=== PATIENT | female | born 1955 | race American Indian/Alaskan Native ===

== ENCOUNTER 2017-06-08 15:00 | Emergency (ER) | payer OTHER ==
--- NOTE | 2017-06-08 19:08 | Emergency Department Report ---
Entered by TRICE WHATLEY, acting as scribe for BARBARA POWELL PA. Chief Complaint: Medical Clearance Stated Complaint: DIALYSIS Time Seen by Provider: 06/08/17 18:54 - HPI History of Present Illness: Patient has dialysis every M//. Patient states she was sick last week and did not have dialysis for 1.5 weeks. Patient went to dialysis today and was told they were not able to do dialysis due to the length of time since it was last done. Notes [facility] [place] called EMS to bring her to this ED for evaluation. In the ED, patient c/o dialysis treatment. Notes she tastes the toxins in her body. Reports SOB. Denies chest pain. Denies abdominal pain, N/V/D - ROS Review of Systems: All systems are negative unless stated in the HPI above. - Exam Vital Signs: Vital Signs 06/08/17 18:00 Temperature 98.7 F Pulse Rate 86 Respiratory 20 Rate Blood Pressure 155/94 O2 Sat by Pulse 95 Oximetry Physical Exam: GENERAL: Patient is alert and oriented x 3. No apparent distress, normal gait, atraumatic. LUNGS: Symmetrical with respiration. No wheezing, rales or crackles, CTAB. HEART: Regular rate and rhythm with normal S1/S2 present. No murmurs, rubs, or gallops. EXTREMITIES/MUSCULOSKELETAL: ROM intact, 2+ pulses in UE/LE, no pitting edema. No left elbow deformity/abrasion present. MSE screening note: Focused history and physical exam performed. Due to findings the following was ordered: see below ED Medical Decision Making - EKG Data EKG shows normal: sinus rhythm Rate: normal - EKG Data Interpretation: other (minimal voltage criteria for LVH, may be normal variant, Borderline ECG) - Medical Decision Making Patient screened by provider in triage area. Lab work ordered and sent in for patient. Patient sent to be seen by MD on main ED side. ED Disposition for MSE Condition: Stable This documentation as recorded by the scribe,TRICE WHATLEY,accurately reflects the service I personally performed and the decisions made by SHERRY holland OYINLOLA A, PA.
[2017-06-08 20:00] LABS: Albumin 3.7 g/dL (3.9-5); Albumin/Globulin Ratio 0.9 %; BUN/Creatinine Ratio 8.73; Bilirubin,Total 0.2 mg/dL (0.1-1.2); Calcium 8.7 mg/dL (8.4-10.2); Chloride 100.4 mmol/L (98-107); Potassium 4.3 mmol/L (3.6-5.0); Total Protein 7.8 g/dL (6.3-8.2)
[2017-06-08 20:02] LABS: Hematocrit 38.9 % (30.3-42.9); Hemoglobin 12.3 gm/dl (10.1-14.3); Mean Corpuscular HGB Conc 32 % (30-34); Mean Corpuscular Volume 75 fl (79-97); Platelet Count 220 K/mm3 (140-440); Red Blood Count 5.18 M/mm3 (3.65-5.03); White Blood Count 3.4 K/mm3 (4.5-11.0)
[2017-06-08 20:13] LABS: Mean Corpuscular Hemoglobin 24 pg (28-32)
[2017-06-08 20:51] LABS: Basophils % (Manual) 0 % (0.0-1.8); Blastocytes % (Manual) 0 %; Eosinophils % (Manual) 0 % (0.0-4.3)
[2017-06-08 20:52] LABS: Anisocytosis 1+; Diff Status Complete; Elliptocytes Few; Poikilocytosis Few; Target Cells Few
--- NOTE | 2017-06-08 23:43 | Emergency Department Report ---
ED Medical Clearance HPI - General Chief complaint: Medical Clearance Stated complaint: DIALYSIS Time Seen by Provider: 06/08/17 22:42 Source: patient Mode of arrival: Ambulatory - History of Present Illness Initial comments: 62-year-old female with a past medical history end-stage kidney disease on hemodialysis, DVT, and PE presents to the hospital complains of needing dialysis. Patient typically receives dialysis Thursday, Thursday, and Thursday. Patient did not go to dialysis in 10 days because she was sick last week. Patient states she has generalized body aches, vomiting, cough at the time which are improving. Dialysis Center refused to perform dialysis and she had not been there in 10 days and instructed her to come to the ER for treatment and evaluation. Patient denies shortness of breath or chest pain, or edema. Allergies/Adverse reactions: Allergies Allergy/AdvReac Type Severity Reaction Status Date / Time amoxicillin Allergy Hives Verified 06/08/17 18:09 [id number] Reductase Allergy Unknown Verified 06/08/17 18:09 Inhibitor ED Review of Systems ROS: Stated complaint: DIALYSIS Other details as noted in HPI Comment: All other systems reviewed and negative Other: Constitutional: No fevers chills or weight loss Eyes: No eye pain visual changes or discharge ENT: No ear pain or throat pain Neck: Denies pain Respiratory: Denies cough wheezing shortness of breath Cardiovascular: Denies chest pain, palpitations, syncope GI: Denies abdominal pain, nausea, vomiting, diarrhea : Patient still makes urine Musculoskeletal: Denies back pain Skin: Denies rash, lesions, erythema Neurologic: Denies headache, numbness, weakness Psychiatric: Denies suicidal ideation, hallucinations ED Past Medical Hx - Past Medical History Hx Hypertension: Yes Hx Deep Vein Thrombosis: Yes (Lungs and right leg) Hx Renal Disease: Yes - Surgical History Past Surgical History?: No - Social History Smoking Status: Never Smoker Substance Use Type: None ED Physical Exam - General Limitations: No Limitations - Other Other exam information: General: No limitations, patient is alert in no acute distress Head exam: Atraumatic, normocephalic Eyes exam: Normal appearance, pupils equal reactive to light, extraocular movements intact ENT: Moist mucous membrane, normal oropharynx Neck exam: Normal inspection, full range of motion Respiratory exam: Clear to auscultation bilateral, no wheezes, rales, crackles Cardiovascular: Normal rate and rhythm, normal heart sounds Abdomen: Soft, nondistended, and nontender, with normal bowel sounds, no rebound, or guarding Extremity: Full range of motion normal inspection no deformity. Left upper arm AV graft positive thrill, no edema Back: Normal Inspection, full range of motion, no tenderness Neurologic: Alert, oriented x3, cranial nerves intact, no motor or sensory deficit Psychiatric: normal affect, normal mood Skin: Warm, dry, intact ED Course Vital Signs 06/08/17 18:00 Temperature 98.7 F Pulse Rate 86 Respiratory 20 Rate Blood Pressure 155/94 O2 Sat by Pulse 95 Oximetry - Reevaluation(s) Reevaluation #1: 06/08/17 23:44 Patient stable - Consultations Consultation #1: 06/08/17 23:[address] De La Rosa. He agrees the patient does not meet criteria for admission to the hospital. Since she has not been to dialysis in quite some time labs were required prior to performing dialysis. Recommend given patient a copy of the labs and instructed her to go to dialysis tomorrow (call prior for a time). ED Medical Decision Making - Lab Data Result diagrams: 06/08/17 19:28 06/08/17 19:28 Lab Results 06/08/17 06/08/17 Range/Units 19:28 19:28 WBC 3.4 L (4.5-11.0) K/mm3 RBC 5.18 H (3.65-5.03) M/mm3 Hgb 12.3 (10.1-14.3) gm/dl Hct 38.9 (30.3-42.9) % MCV 75 L (79-97) fl MCH 24 L (28-32) pg MCHC 32 (30-34) % RDW 17.0 H (13.2-15.2) % Plt Count 220 (140-440) K/mm3 Add Manual Diff Complete Total Counted 100 Seg Neuts % (Manual) 56.0 (40.0-70.0) % Band Neutrophils % 0 % Lymphocytes % (Manual) 38.0 H (13.4-35.0) % Reactive Lymphs % (Man) 0 % Monocytes % (Manual) 6.0 (0.0-7.3) % Eosinophils % (Manual) 0 (0.0-4.3) % Basophils % (Manual) 0 (0.0-1.8) % Metamyelocytes % 0 % Myelocytes % 0 % Promyelocytes % 0 % Blast Cells % 0 % Nucleated RBC % Not Reportable Seg Neutrophils # Man 1.9 (1.8-7.7) K/mm3 Band Neutrophils # 0.0 K/mm3 Lymphocytes # (Manual) 1.3 (1.2-5.4) K/mm3 Abs React Lymphs (Man) 0.0 K/mm3 Monocytes # (Manual) 0.2 (0.0-0.8) K/mm3 Eosinophils # (Manual) 0.0 (0.0-0.4) K/mm3 Basophils # (Manual) 0.0 (0.0-0.1) K/mm3 Metamyelocytes # 0.0 K/mm3 Myelocytes # 0.0 K/mm3 Promyelocytes # 0.0 K/mm3 Blast Cells # 0.0 K/mm3 WBC Morphology Not Reportable Hypersegmented Neuts Not Reportable Hyposegmented Neuts Not Reportable Hypogranular Neuts Not Reportable Smudge Cells Not Reportable Toxic Granulation Not Reportable Toxic Vacuolation Not Reportable Dohle Bodies Not Reportable Pelger-Huet Anomaly Not Reportable Raad Rods Not Reportable Platelet Estimate Appears normal Clumped Platelets Not Reportable Plt Clumps, EDTA Not Reportable Large Platelets Not Reportable Giant Platelets Not Reportable Platelet Satelliting Not Reportable Plt Morphology Comment Not Reportable RBC Morphology Not Reportable Dimorphic RBCs Not Reportable Polychromasia Not Reportable Hypochromasia Not Reportable Poikilocytosis Few Anisocytosis 1+ Microcytosis Not Reportable Macrocytosis Not Reportable Spherocytes Not Reportable Pappenheimer Bodies Not Reportable Sickle Cells Not Reportable Target Cells Few Tear Drop Cells Not Reportable Ovalocytes Not Reportable Helmet Cells Not Reportable [place] Bodies Not Reportable [place] Rings Not Reportable Adeline Cells Not Reportable Bite Cells Not Reportable Crenated Cell Not Reportable Elliptocytes Few Acanthocytes (Spur) Not Reportable Rouleaux Not Reportable Hemoglobin C Crystals Not Reportable Schistocytes Not Reportable Malaria parasites Not Reportable Minesh Bodies Not Reportable Hem Pathologist Commnt No Sodium 137 (137-145) mmol/L Potassium 4.3 (3.6-5.0) mmol/L Chloride 100.4 (98-107) mmol/L Carbon Dioxide 18 L (22-30) mmol/L Anion Gap 23 mmol/L BUN 55 H (7-17) mg/dL Creatinine 6.3 H (0.7-1.2) mg/dL Estimated GFR 7 ml/min BUN/Creatinine Ratio 8.73 % Glucose 99 (65-100) mg/dL Calcium 8.7 (8.4-10.2) mg/dL Total Bilirubin 0.20 (0.1-1.2) mg/dL AST 30 (5-40) units/L ALT 22 (7-56) units/L Alkaline Phosphatase 68 (35-129) units/L Total Protein 7.8 (6.3-8.2) g/dL Albumin 3.7 L (3.9-5) g/dL Albumin/Globulin Ratio 0.9 % - EKG Data -: EKG Interpreted by Me (sinus rhythm [address] elevation, no peaked T waves ) - Radiology Data Radiology results: image reviewed (chest x-ray: No acute findings) - Medical Decision Making Although patient has missed several dialysis she does not meet criteria for admission at this time. There are no signs of Hyperkalemia, alteration in mental status, volume overload, or pulmonary edema. Patient stable for outpatient dialysis. Provide a copy of labs for follow-up. Counseled on the importance of not missing her dialysis. - Differential Diagnosis noncompliance, bilateral below, hyperkalemia ED Disposition Clinical Impression: ESRD on dialysis, Dialysis patient, noncompliant Disposition: DC-01 TO HOME OR SELFCARE Is pt being admited?: No Does the pt Need Aspirin: No Condition: Stable Additional Instructions: Take a copy of the labs and go to your dialysis tomorrow. Call prior for a specific time. Referrals: ZACHARY GOODMAN MD [Staff Physician] - 3-5 Days Time of Disposition: 23:44
[2017-06-09 00:32] VITALS: BP 134/78
--- NOTE | 2017-06-09 08:02 | XRay Report ---
ROUTINE CHEST, TWO VIEWS: HISTORY: Shortness of breath. The trachea, heart, mediastinal contour, lung gooden and bony thorax are unremarkable. IMPRESSION: Unremarkable chest x-ray.
== END 2017-06-09 | disposition home or self-care (01) ==
LOC: ED 15:00
DX: I12.0 Hypertensive chronic kidney disease with stage 5 chronic kidney disease or end stage renal disease (principal); N18.6 End stage renal disease; Z99.2 Dependence on renal dialysis; Z91.15 Patient's noncompliance with renal dialysis; Z86.718 Personal history of other venous thrombosis and embolism; Z88.1 Allergy status to other antibiotic agents; Z88.8 Allergy status to other drugs, medicaments and biological substances
CPT/HCPCS: 36415; 71020; 80053; 85007; 85025; 99284

== ENCOUNTER 2019-09-16 10:38 | Emergency (ER) | payer MEDICARE, OTHER ==
[2019-09-16 12:58] LABS: Hematocrit 25.2 % (30.3-42.9); Hemoglobin 7.9 gm/dl (10.1-14.3); Mean Corpuscular HGB Conc 32 % (30-34); Mean Corpuscular Volume 85 fl (79-97); Platelet Count 168 K/mm3 (140-440); Red Blood Count 2.96 M/mm3 (3.65-5.03); Red Cell Distribution Width 19.8 % (13.2-15.2)
--- NOTE | 2019-09-16 13:13 | Emergency Department Report ---
ED General Adult HPI - General Chief complaint: Medical Clearance Stated complaint: NEEDS DIALYSIS Time Seen by Provider: 09/16/19 11:22 Source: patient Mode of arrival: Ambulatory Limitations: No Limitations - History of Present Illness Initial comments: The patient presents to the emergency department for medical clearance for hemodialysis. Patient states she is scheduled for dialysis today at 3 PM was told to come to the emergency department for laboratory evaluation. Patient denies any chest pain, shortness breath, or abdominal pain. -: unknown Severity scale (0 -10): 0 Consistency: constant Improves with: none Worsens with: none Associated Symptoms: denies other symptoms Treatments Prior to Arrival: none - Related Data Allergies Allergy/AdvReac Type Severity Reaction Status Date / Time amoxicillin Allergy Hives Verified 09/16/19 10:58 Llvdabn-Ldc-Myw Reductase Allergy Unknown Verified 09/16/19 10:58 Inhibitor ED Review of Systems ROS: Stated complaint: NEEDS DIALYSIS Other details as noted in HPI Comment: All other systems reviewed and negative Constitutional: denies: chills, fever Eyes: denies: eye pain, eye discharge, vision change ENT: denies: ear pain, throat pain Respiratory: denies: cough, shortness of breath, wheezing Cardiovascular: denies: chest pain, palpitations Endocrine: no symptoms reported Gastrointestinal: denies: abdominal pain, nausea, diarrhea Genitourinary: denies: urgency, dysuria, discharge Musculoskeletal: denies: back pain, joint swelling, arthralgia Skin: denies: rash, lesions Neurological: denies: headache, weakness, paresthesias Psychiatric: denies: anxiety, depression Hematological/Lymphatic: denies: easy bleeding, easy bruising ED Past Medical Hx - Past Medical History Hx Hypertension: Yes Hx Deep Vein Thrombosis: Yes (Lungs and right leg) Hx Renal Disease: Yes - Social History Smoking Status: Never Smoker Substance Use Type: None ED Physical Exam - General Limitations: No Limitations General appearance: alert, in no apparent distress - Head Head exam: Present: atraumatic, normocephalic - Eye Eye exam: Present: normal appearance, PERRL, EOMI - ENT ENT exam: Present: mucous membranes moist - Neck Neck exam: Present: normal inspection - Respiratory Respiratory exam: Present: normal lung sounds bilaterally. Absent: respiratory distress - Cardiovascular Cardiovascular Exam: Present: regular rate, normal rhythm. Absent: systolic murmur, diastolic murmur, rubs, gallop - GI/Abdominal GI/Abdominal exam: Present: soft, normal bowel sounds. Absent: distended, tenderness - Extremities Exam Extremities exam: Present: normal inspection - Back Exam Back exam: Present: normal inspection - Neurological Exam Neurological exam: Present: alert, oriented X3, CN II-XII intact. Absent: motor sensory deficit - Psychiatric Psychiatric exam: Present: normal affect, normal mood - Skin Skin exam: Present: warm, dry, intact, normal color. Absent: rash ED Course Vital Signs 09/16/19 09/16/19 10:54 10:56 Temperature 98.1 F 98.1 F Pulse Rate 76 75 Respiratory 16 16 Rate Blood Pressure 157/91 157/91 O2 Sat by Pulse 100 100 Oximetry ED Medical Decision Making - Lab Data Result diagrams: 09/16/19 12:25 09/16/19 12:25 Lab Results 09/16/19 09/16/19 Range/Units 12:25 12:25 WBC 4.0 L (4.5-11.0) K/mm3 RBC 2.96 L (3.65-5.03) M/mm3 Hgb 7.9 L (10.1-14.3) gm/dl Hct 25.2 L (30.3-42.9) % MCV 85 (79-97) fl MCH 27 L (28-32) pg MCHC 32 (30-34) % RDW 19.8 H (13.2-15.2) % Plt Count 168 (140-440) K/mm3 Sodium 145 (137-145) mmol/L Potassium 4.1 (3.6-5.0) mmol/L Chloride 108.8 H (98-107) mmol/L Carbon Dioxide 21 L (22-30) mmol/L Anion Gap 19 mmol/L BUN 41 H (7-17) mg/dL Creatinine 9.8 H (0.7-1.2) mg/dL Estimated GFR 5 ml/min BUN/Creatinine Ratio 4 % Glucose 97 (65-100) mg/dL Calcium 7.3 L (8.4-10.2) mg/dL Total Bilirubin 0.40 (0.1-1.2) mg/dL AST 17 (5-40) units/L ALT < 5 L (7-56) units/L Alkaline Phosphatase 62 (35-129) units/L Total Protein 5.5 L (6.3-8.2) g/dL Albumin 2.4 L (3.9-5) g/dL Albumin/Globulin Ratio 0.8 % - Medical Decision Making Results discussed with patient Critical care attestation.: If time is entered above; I have spent that time in minutes in the direct care of this critically ill patient, excluding procedure time. ED Disposition Clinical Impression: ESRD (end stage renal disease) Disposition: TO HOME OR SELFCARE Is pt being admited?: No Does the pt Need Aspirin: No Condition: Stable Instructions: Chronic Kidney Disease (ED), End-Stage Kidney Disease (ED) Additional Instructions: Your potassium today is 4.1 Referrals: PRIMARY CAREMD [Primary Care Provider] - 3-5 Days LISA BOWMAN MD [Staff Physician] - 3-5 Days Time of Disposition: 14:12
[2019-09-16 13:17] LABS: Albumin 2.4 g/dL (3.9-5); BUN/Creatinine Ratio 4; Blood Urea Nitrogen 41 mg/dL (7-17); Calcium 7.3 mg/dL (8.4-10.2); Hemolysis Index 3
[2019-09-16 13:22] LABS: Alanine Aminotransferase < 5 units/L (7-56)
[2019-09-16 14:27] LABS: Anisocytosis 1+; Eosinophils % (Manual) 0 % (0.0-4.3); Total Cells Counted 100
[2019-09-16 14:28] LABS: Schistocytes 1+
[2019-09-16 14:29] LABS: Poikilocytosis 1+; Target Cells Few
[2019-09-16 14:30] LABS: Ovalocytes Few
[2019-09-16 14:33] LABS: Platelet Estimate Consistent w Auto
[2019-09-16 14:34] VITALS: BP 150/88
== END 2019-09-16 14:36 | disposition home or self-care (01) ==
LOC: ED 10:38
DX: I12.0 Hypertensive chronic kidney disease with stage 5 chronic kidney disease or end stage renal disease (principal); N18.6 End stage renal disease; Z99.2 Dependence on renal dialysis; Z88.1 Allergy status to other antibiotic agents; Z91.09 Other allergy status, other than to drugs and biological substances; Z86.718 Personal history of other venous thrombosis and embolism
CPT/HCPCS: 36415; 80053; 85007; 85025

== ENCOUNTER 2020-10-21 11:34 | Observation (INO) | payer MEDICARE ==
--- NOTE | 2020-10-21 12:22 | Emergency Department Report ---
ED General Adult HPI - General Chief complaint: Fever Stated complaint: FEVER/BODYACHES/DIALYSIS NEEDED PUI?: Yes Time Seen by Provider: 10/21/20 11:54 Source: patient, EMS ( EMS documentation not available at time of chart dictation ), RN notes reviewed Mode of arrival: Wheelchair Limitations: Physical Limitation - History of Present Illness Initial comments: The patient was evaluated in the emergency department for symptoms described in the history of present illness. He/she was evaluated in the context of the global COVID-19 pandemic, which necessitated consideration that the patient might be at risk for infection with the virus that causes COVID-19. Institutional protocols and algorithms that pertain to the evaluation of patients at risk for COVID-19 are in a state of rapid change based on information released by regulatory bodies including the CDC and federal and state organizations. These policies and algorithms were followed during the patient's care in the emergency department. Please note that these policies, procedures and recommendations changed on a rapid basis. During the entire history and physical examination, I had on complete personal protective equipment. The patient is a 65-year-old female. She believes her monogram technician is Dr. Orellana. She was sent to the emergency room from her outpatient dialysis facility for fevers and chills. Patient has been having fever and chills for 1 day. Patient denies loss of taste, loss of smell, cough. No nausea, vomiting or diarrhea. No urinary symptoms. No exposure to Covid positive individuals. Has right paralumbar back pain, nontraumatic, for the past 3 days, and right- sided abdominal pain. She has a left upper extremity graft which failed. She has a left-sided thoracic Vas-Cath, which was placed at [facility] a few months ago. She is not having any pain or discharge over the Vas-Cath that she is aware of. -: Gradual, days(s) (1) Severity scale (0 -10): 9 Consistency: intermittent Improves with: none Worsens with: none - Related Data Home Medications Medication Instructions Recorded Confirmed Last Taken No Known Home Medications [No 10/21/20 10/21/20 Unknown Reported Home Medications] Allergies Allergy/AdvReac Type Severity Reaction Status Date / Time amoxicillin Allergy Hives Verified 09/16/19 10:58 [id number] Reductase Allergy Unknown Verified 09/16/19 10:58 Inhibitor ED Review of Systems ROS: Stated complaint: FEVER/BODYACHES/DIALYSIS NEEDED Other details as noted in HPI Constitutional: chills, fever, malaise, weakness Eyes: denies: eye discharge ENT: denies: epistaxis, congestion Respiratory: denies: cough Cardiovascular: denies: chest pain Gastrointestinal: abdominal pain Genitourinary: denies: dysuria Musculoskeletal: back pain, myalgia. denies: arthralgia Skin: denies: lesions Neurological: weakness Hematological/Lymphatic: denies: easy bleeding ED Past Medical Hx - Past Medical History Previous Medical History?: Yes Hx Hypertension: Yes Hx CVA: No Hx Heart Attack/AMI: No Hx Congestive Heart Failure: No Hx Diabetes: No Hx Deep Vein Thrombosis: Yes (Lungs and right leg) Hx GERD: No Hx Renal Disease: Yes Hx of Cancer: No Hx Sickle Cell Disease: No Hx Arthritis: No Hx Headaches / Migraines: No Hx Seizures: No Hx Asthma: No Hx COPD: No Hx Tuberculosis: No Hx Dementia: No - Social History Smoking Status: Never Smoker Substance Use Type: None - Medications Home Medications: Home Medications Medication Instructions Recorded Confirmed Last Taken Type No Known Home Medications [No 10/21/20 10/21/20 Unknown History Reported Home Medications] ED Physical Exam - General Limitations: Physical Limitation General appearance: alert, in no apparent distress - Head Head exam: Present: atraumatic, normocephalic - Eye Eye exam: Present: normal appearance, EOMI. Absent: nystagmus - ENT ENT exam: Present: normal exam, normal orophraynx, mucous membranes moist, normal external ear exam - Neck Neck exam: Present: normal inspection, full ROM. Absent: tenderness, meningismus - Respiratory Respiratory exam: Present: normal lung sounds bilaterally. Absent: respiratory distress, wheezes, rales, rhonchi, stridor, decreased breath sounds - Cardiovascular Cardiovascular Exam: Present: regular rate, normal rhythm, normal heart sounds. Absent: bradycardia, tachycardia, irregular rhythm, systolic murmur, diastolic m urmur, rubs, gallop - GI/Abdominal GI/Abdominal exam: Present: soft, tenderness (There is right flank/right upper quadrant tenderness.). Absent: distended, guarding, rebound, rigid, pulsatile mass - Extremities Exam Extremities exam: Present: normal inspection, full ROM, other (2+ pulses noted in the bilateral upper and lower extremities. There is no palpable cord. negative Homans sign. Muscular compartments are soft. The pelvis is stable.). Absent: calf tenderness - Back Exam Back exam: Present: normal inspection, CVA tenderness (R). Absent: tenderness, paraspinal tenderness, vertebral tenderness - Neurological Exam Neurological exam: Present: alert, other (No facial droop. Tongue midline. Extraocular movements intact bilaterally. Facial sensation intact to light touch in V1, V2, V3 distribution bilaterally. 5 and a 5 strength in 4 extremities. Sensation intact to light touch in 4 extremities.) - Psychiatric Psychiatric exam: Present: normal affect, normal mood - Skin Skin exam: Present: warm, dry, intact, normal color, other (Left-sided thoracic Vas-Cath noted, with green pus noted coming from skin. The catheter itself is nontender). Absent: rash ED Course Vital Signs 10/21/20 10/21/20 10/21/20 11:53 11:54 11:59 Temperature 101.8 F H 101.8 F H Pulse Rate 92 H 94 H 92 H Respiratory 18 19 18 Rate Blood Pressure 134/81 Blood Pressure 134/81 [Right] O2 Sat by Pulse 100 100 100 Oximetry 10/21/20 10/21/20 10/21/20 12:00 12:02 12:09 Temperature 101.8 F H Pulse Rate 96 H 94 H Respiratory 15 22 15 Rate Blood Pressure 130/74 Blood Pressure 130/74 [Right] O2 Sat by Pulse 100 100 100 Oximetry 10/21/20 10/21/20 10/21/20 12:15 12:30 12:38 Temperature Pulse Rate 92 H 94 H 92 H Respiratory 23 17 Rate Blood Pressure 130/74 130/79 Blood Pressure [Right] O2 Sat by Pulse 100 100 Oximetry 10/21/20 10/21/20 10/21/20 12:45 13:00 13:15 Temperature Pulse Rate 95 H 94 H 95 H Respiratory 22 20 16 Rate Blood Pressure 130/79 131/74 131/74 Blood Pressure [Right] O2 Sat by Pulse 100 100 99 Oximetry 10/21/20 10/21/20 10/21/20 13:30 13:45 14:00 Temperature 103.2 F H Pulse Rate 95 H 104 H 96 H Respiratory 21 26 H 16 Rate Blood Pressure 135/77 135/77 126/76 Blood Pressure 126/76 [Right] O2 Sat by Pulse 100 100 100 Oximetry 10/21/20 10/21/20 10/21/20 14:15 14:30 14:45 Temperature Pulse Rate 100 H 96 H 95 H Respiratory 22 22 21 Rate Blood Pressure 126/76 126/70 126/70 Blood Pressure [Right] O2 Sat by Pulse 100 100 100 Oximetry 10/21/20 10/21/20 10/21/20 15:00 15:15 15:44 Temperature Pulse Rate 92 H 93 H 99 H Respiratory 19 14 14 Rate Blood Pressure 128/77 128/77 128/77 Blood Pressure [Right] O2 Sat by Pulse 100 99 100 Oximetry 10/21/20 10/21/20 15:46 16:00 Temperature Pulse Rate 94 H 93 H Respiratory 16 17 Rate Blood Pressure 128/77 129/70 Blood Pressure 120/79 [Right] O2 Sat by Pulse 100 100 Oximetry ED Medical Decision Making - Lab Data Result diagrams: 10/21/20 13:10 10/21/20 13:10 Vital Signs 10/21/20 10/21/20 10/21/20 11:53 11:54 11:59 Temperature 101.8 F H 101.8 F H Pulse Rate 92 H 94 H 92 H Respiratory 18 19 18 Rate Blood Pressure 134/81 Blood Pressure 134/81 [Right] O2 Sat by Pulse 100 100 100 Oximetry 10/21/20 10/21/20 10/21/20 12:00 12:02 12:09 Temperature 101.8 F H Pulse Rate 96 H 94 H Respiratory 15 22 15 Rate Blood Pressure 130/74 Blood Pressure 130/74 [Right] O2 Sat by Pulse 100 100 100 Oximetry 10/21/20 10/21/20 10/21/20 12:15 12:30 12:38 Temperature Pulse Rate 92 H 94 H 92 H Respiratory 23 17 Rate Blood Pressure 130/74 130/79 Blood Pressure [Right] O2 Sat by Pulse 100 100 Oximetry 10/21/20 10/21/20 10/21/20 12:45 13:00 13:15 Temperature Pulse Rate 95 H 94 H 95 H Respiratory 22 20 16 Rate Blood Pressure 130/79 131/74 131/74 Blood Pressure [Right] O2 Sat by Pulse 100 100 99 Oximetry 10/21/20 10/21/20 10/21/20 13:30 13:45 14:00 Temperature 103.2 F H Pulse Rate 95 H 104 H 96 H Respiratory 21 26 H 16 Rate Blood Pressure 135/77 135/77 126/76 Blood Pressure 126/76 [Right] O2 Sat by Pulse 100 100 100 Oximetry Lab Results 10/21/20 10/21/20 10/21/20 Range/Units 13:10 13:10 13:10 WBC 8.9 (4.5-11.0) K/mm3 RBC 4.33 (3.65-5.03) M/mm3 Hgb 11.1 (10.1-14.3) gm/dl Hct 35.5 (30.3-42.9) % MCV 82 (79-97) fl MCH 26 L (28-32) pg MCHC 31 (30-34) % RDW 17.6 H (13.2-15.2) % Plt Count 57 L (140-440) K/mm3 Add Manual Diff Complete Total Counted 100 Seg Neuts % (Manual) 86.0 H (40.0-70.0) % Band Neutrophils % 6.0 % Lymphocytes % (Manual) 2.0 L (13.4-35.0) % Reactive Lymphs % (Man) 0 % Monocytes % (Manual) 2.0 (0.0-7.3) % Eosinophils % (Manual) 0 (0.0-4.3) % Basophils % (Manual) 0 (0.0-1.8) % Metamyelocytes % 4.0 % Myelocytes % 0 % Promyelocytes % 0 % Blast Cells % 0 % Nucleated RBC % Not Reportable Seg Neutrophils # Man 7.7 (1.8-7.7) K/mm3 Band Neutrophils # 0.5 K/mm3 Lymphocytes # (Manual) 0.2 L (1.2-5.4) K/mm3 Abs React Lymphs (Man) 0.0 K/mm3 Monocytes # (Manual) 0.2 (0.0-0.8) K/mm3 Eosinophils # (Manual) 0.0 (0.0-0.4) K/mm3 Basophils # (Manual) 0.0 (0.0-0.1) K/mm3 Metamyelocytes # 0.4 K/mm3 Myelocytes # 0.0 K/mm3 Promyelocytes # 0.0 K/mm3 Blast Cells # 0.0 K/mm3 WBC Morphology Not Reportable Hypersegmented Neuts Not Reportable Hyposegmented Neuts Not Reportable Hypogranular Neuts Not Reportable Smudge Cells Not Reportable Toxic Granulation Not Reportable Toxic Vacuolation Not Reportable Dohle Bodies Not Reportable Pelger-Huet Anomaly Not Reportable Raad Rods Not Reportable Platelet Estimate Consistent w auto Clumped Platelets Not Reportable Plt Clumps, EDTA Not Reportable Large Platelets Not Reportable Giant Platelets Not Reportable Platelet Satelliting Not Reportable Plt Morphology Comment Not Reportable RBC Morphology Not Reportable Dimorphic RBCs Not Reportable Polychromasia Not Reportable Hypochromasia Few Poikilocytosis Not Reportable Anisocytosis Not Reportable Microcytosis Not Reportable Macrocytosis Not Reportable Spherocytes Not Reportable Pappenheimer Bodies Not Reportable Sickle Cells Not Reportable Target Cells Not Reportable Tear Drop Cells Few Ovalocytes Not Reportable Helmet Cells Not Reportable Andrews-Copeland Bodies Not Reportable Colbert Rings Not Reportable Adeline Cells Not Reportable Bite Cells Not Reportable Crenated Cell Not Reportable Elliptocytes 2+ Acanthocytes (Spur) Not Reportable Rouleaux Not Reportable Hemoglobin C Crystals Not Reportable Schistocytes 1+ Malaria parasites Not Reportable Minesh Bodies Not Reportable Hem Pathologist Commnt No APTT 33.2 (24.2-36.6) Sec. D-Dimer 6998.29 H (0-234) ng/mlDDU Sodium 138 (137-145) mmol/L Potassium 4.6 (3.6-5.0) mmol/L Chloride 100.4 (98-107) mmol/L Carbon Dioxide 21 L (22-30) mmol/L Anion Gap 21 mmol/L BUN 56 H (7-17) mg/dL Creatinine 8.1 H (0.6-1.2) mg/dL Estimated GFR 6 ml/min BUN/Creatinine Ratio 7 % Glucose 95 (65-100) mg/dL Lactic Acid (0.7-2.0) mmol/L Calcium 8.2 L (8.4-10.2) mg/dL Magnesium (1.7-2.3) mg/dL Ferritin (10.0-200.0) ng/mL Total Bilirubin 0.50 (0.1-1.2) mg/dL AST 28 (5-40) units/L ALT 14 (7-56) units/L Alkaline Phosphatase 79 (35-129) units/L Lactate Dehydrogenase 302 H (91-180) units/L Total Creatine Kinase (30-135) units/L Troponin T 0.074 H (0.00-0.029) ng/mL C-Reactive Protein 20.60 H (0.00-1.30) mg/dL Total Protein 5.9 L (6.3-8.2) g/dL Albumin 2.5 L (3.9-5) g/dL Albumin/Globulin Ratio 0.7 % Triglycerides 184 H (2-149) mg/dL Cholesterol 216 H (50-199) mg/dL LDL Cholesterol Direct 119 (50-130) mg/dL HDL Cholesterol 60 H (40-59) mg/dL Cholesterol/HDL Ratio 3.60 % Lipase (13-60) units/L Procalcitonin (<0.15) ng/mL 10/21/20 10/21/20 10/21/20 Range/Units 13:10 13:10 13:10 WBC (4.5-11.0) K/mm3 RBC (3.65-5.03) M/mm3 Hgb (10.1-14.3) gm/dl Hct (30.3-42.9) % MCV (79-97) fl MCH (28-32) pg MCHC (30-34) % RDW (13.2-15.2) % Plt Count (140-440) K/mm3 Add Manual Diff Total Counted Seg Neuts % (Manual) (40.0-70.0) % Band Neutrophils % % Lymphocytes % (Manual) (13.4-35.0) % Reactive Lymphs % (Man) % Monocytes % (Manual) (0.0-7.3) % Eosinophils % (Manual) (0.0-4.3) % Basophils % (Manual) (0.0-1.8) % Metamyelocytes % % Myelocytes % % Promyelocytes % % Blast Cells % % Nucleated RBC % Seg Neutrophils # Man (1.8-7.7) K/mm3 Band Neutrophils # K/mm3 Lymphocytes # (Manual) (1.2-5.4) K/mm3 Abs React Lymphs (Man) K/mm3 Monocytes # (Manual) (0.0-0.8) K/mm3 Eosinophils # (Manual) (0.0-0.4) K/mm3 Basophils # (Manual) (0.0-0.1) K/mm3 Metamyelocytes # K/mm3 Myelocytes # K/mm3 Promyelocytes # K/mm3 Blast Cells # K/mm3 WBC Morphology Hypersegmented Neuts Hyposegmented Neuts Hypogranular Neuts Smudge Cells Toxic Granulation Toxic Vacuolation Dohle Bodies Pelger-Huet Anomaly Raad Rods Platelet Estimate Clumped Platelets Plt Clumps, EDTA Large Platelets Giant Platelets Platelet Satelliting Plt Morphology Comment RBC Morphology Dimorphic RBCs Polychromasia Hypochromasia Poikilocytosis Anisocytosis Microcytosis Macrocytosis Spherocytes Pappenheimer Bodies Sickle Cells Target Cells Tear Drop Cells Ovalocytes Helmet Cells Andrews-Copeland Bodies Colbert Rings [place] Cells Bite Cells Crenated Cell Elliptocytes Acanthocytes (Spur) Rouleaux Hemoglobin C Crystals Schistocytes Malaria parasites Minesh Bodies Hem Pathologist Commnt APTT (24.2-36.6) Sec. D-Dimer (0-234) ng/mlDDU Sodium (137-145) mmol/L Potassium (3.6-5.0) mmol/L Chloride (98-107) mmol/L Carbon Dioxide (22-30) mmol/L Anion Gap mmol/L BUN (7-17) mg/dL Creatinine (0.6-1.2) mg/dL Estimated GFR ml/min BUN/Creatinine Ratio % Glucose (65-100) mg/dL Lactic Acid 1.50 (0.7-2.0) mmol/L Calcium (8.4-10.2) mg/dL Magnesium (1.7-2.3) mg/dL Ferritin 1040.0 H (10.0-200.0) ng/mL Total Bilirubin (0.1-1.2) mg/dL AST (5-40) units/L ALT (7-56) units/L Alkaline Phosphatase (35-129) units/L Lactate Dehydrogenase (91-180) units/L Total Creatine Kinase (30-135) units/L Troponin T (0.00-0.029) ng/mL C-Reactive Protein (0.00-1.30) mg/dL Total Protein (6.3-8.2) g/dL Albumin (3.9-5) g/dL Albumin/Globulin Ratio % Triglycerides (2-149) mg/dL Cholesterol (50-199) mg/dL LDL Cholesterol Direct (50-130) mg/dL HDL Cholesterol (40-59) mg/dL Cholesterol/HDL Ratio % Lipase (13-60) units/L Procalcitonin 131.18 (<0.15) ng/mL 10/21/20 10/21/20 10/21/20 Range/Units 13:10 13:10 14:59 WBC (4.5-11.0) K/mm3 RBC (3.65-5.03) M/mm3 Hgb (10.1-14.3) gm/dl Hct (30.3-42.9) % MCV (79-97) fl MCH (28-32) pg MCHC (30-34) % RDW (13.2-15.2) % Plt Count (140-440) K/mm3 Add Manual Diff Total Counted Seg Neuts % (Manual) (40.0-70.0) % Band Neutrophils % % Lymphocytes % (Manual) (13.4-35.0) % Reactive Lymphs % (Man) % Monocytes % (Manual) (0.0-7.3) % Eosinophils % (Manual) (0.0-4.3) % Basophils % (Manual) (0.0-1.8) % Metamyelocytes % % Myelocytes % % Promyelocytes % % Blast Cells % % Nucleated RBC % Seg Neutrophils # Man (1.8-7.7) K/mm3 Band Neutrophils # K/mm3 Lymphocytes # (Manual) (1.2-5.4) K/mm3 Abs React Lymphs (Man) K/mm3 Monocytes # (Manual) (0.0-0.8) K/mm3 Eosinophils # (Manual) (0.0-0.4) K/mm3 Basophils # (Manual) (0.0-0.1) K/mm3 Metamyelocytes # K/mm3 Myelocytes # K/mm3 Promyelocytes # K/mm3 Blast Cells # K/mm3 WBC Morphology Hypersegmented Neuts Hyposegmented Neuts Hypogranular Neuts Smudge Cells Toxic Granulation Toxic Vacuolation Dohle Bodies Pelger-Huet Anomaly Raad Rods Platelet Estimate Clumped Platelets Plt Clumps, EDTA Large Platelets Giant Platelets Platelet Satelliting Plt Morphology Comment RBC Morphology Dimorphic RBCs Polychromasia Hypochromasia Poikilocytosis Anisocytosis Microcytosis Macrocytosis Spherocytes Pappenheimer Bodies Sickle Cells Target Cells Tear Drop Cells Ovalocytes Helmet Cells Andrews-Copeland Bodies Colbert Rings Adeline Cells Bite Cells Crenated Cell Elliptocytes Acanthocytes (Spur) Rouleaux Hemoglobin C Crystals Schistocytes Malaria parasites Minesh Bodies Hem Pathologist Commnt APTT (24.2-36.6) Sec. D-Dimer (0-234) ng/mlDDU Sodium (137-145) mmol/L Potassium (3.6-5.0) mmol/L Chloride (98-107) mmol/L Carbon Dioxide (22-30) mmol/L Anion Gap mmol/L BUN (7-17) mg/dL Creatinine (0.6-1.2) mg/dL Estimated GFR ml/min BUN/Creatinine Ratio % Glucose (65-100) mg/dL Lactic Acid 1.40 (0.7-2.0) mmol/L Calcium (8.4-10.2) mg/dL Magnesium 1.90 (1.7-2.3) mg/dL Ferritin (10.0-200.0) ng/mL Total Bilirubin (0.1-1.2) mg/dL AST (5-40) units/L ALT (7-56) units/L Alkaline Phosphatase (35-129) units/L Lactate Dehydrogenase (91-180) units/L Total Creatine Kinase 22 L (30-135) units/L Troponin T (0.00-0.029) ng/mL C-Reactive Protein (0.00-1.30) mg/dL Total Protein (6.3-8.2) g/dL Albumin (3.9-5) g/dL Albumin/Globulin Ratio % Triglycerides (2-149) mg/dL Cholesterol (50-199) mg/dL LDL Cholesterol Direct (50-130) mg/dL HDL Cholesterol (40-59) mg/dL Cholesterol/HDL Ratio % Lipase 32 (13-60) units/L Procalcitonin (<0.15) ng/mL - EKG Data -: EKG Interpreted by Nh EKG shows normal: sinus rhythm Rate: normal - EKG Data 10/21/20 16:15 Sinus rhythm, 63 bpm, normal axis, QTC prolonged, borderline left ventricular hypertrophy. Motion artifact. This EKG is abnormal. The EKG is not a STEMI. When compared to prior EKG from May 2017, appears to be grossly unchanged. - Radiology Data Radiology results: report reviewed, image reviewed ULTRASOUND ABDOMEN, LIMITED (RIGHT UPPER QUADRANT) INDICATION: ruq pain. COMPARISON: None available. FINDINGS: Pancreas: Visualized portion shows no significant abnormality. Liver: No significant abnormality. Gallbladder: Surgically absent. Sonographic Montes De Oca's sign: Not performed. Bile ducts: No significant abnormality. Common Bile Duct measures 5.1 mm. Free fluid: None. Additional Findings: The right kidney is atrophic. IMPRESSION: 1. No acute sonographic abnormality of the right upper quadrant. Signer Name: Radames Toro MD Signed: 10/21/2020 2:13 PM Workstation Name: [id number] CHEST 1 VIEW 10/21/2020 12:37 PM INDICATION / CLINICAL INFORMATION: sepsis. COMPARISON: None available. FINDINGS: SUPPORT DEVICES: Left internal jugular dialysis catheter has tip in right atrium HEART / MEDIASTINUM: No significant abnormality. LUNGS / PLEURA: No significant pulmonary or pleural abnormality. No pneumothorax. ADDITIONAL FINDINGS: No significant additional findings. IMPRESSION: 1. No acute findings. Signer Name: Alfred Hansen MD Signed: 10/21/2020 11:50 AM Workstation Name: [id number] ULTRASOUND ABDOMEN, LIMITED (RIGHT UPPER QUADRANT) INDICATION: ruq pain. COMPARISON: None available. FINDINGS: Pancreas: Visualized portion shows no significant abnormality. Liver: No significant abnormality. Gallbladder: Surgically absent. Sonographic Montes De Oca's sign: Not performed. Bile ducts: No significant abnormality. Common Bile Duct measures 5.1 mm. Free fluid: None. Additional Findings: The right kidney is atrophic. IMPRESSION: 1. No acute sonographic abnormality of the right upper quadrant. Signer Name: Radames Toro MD Signed: 10/21/2020 2:13 PM Workstation Name: [id number] CT ABDOMEN AND PELVIS WITHOUT CONTRAST INDICATION / CLINICAL INFORMATION: Back pain and right upper quadrant pain for 2 days. TECHNIQUE: Axial CT images were obtained through the abdomen and pelvis without IV contrast. All CT scans at this location are performed using CT dose reduction for ALARA by means of automated exposure control. COMPARISON: Limited abdominal ultrasound performed earlier today. FINDINGS: LOWER CHEST: A partially visualized central venous catheter terminates within the right atrium. No significant abnormality. LIVER: No significant abnormality. GALLBLADDER: Surgically absent. BILE DUCTS: No significant abnormality. PANCREAS: No significant abnormality. SPLEEN: No significant abnormality. ADRENALS: There is bilateral adrenal enlargement without visualization of a suspicious nodule/mass. RIGHT KIDNEY / URETER: Moderate atrophy of the right kidney. No acute abnormality. LEFT KIDNEY / URETER: Moderate atrophy of the left kidney. No acute abnormality. STOMACH / SMALL BOWEL: No significant abnormality. COLON: Generalized colonic diverticulosis without evidence of diverticulitis. No other significant abnormality. APPENDIX: No significant abnormality. PERITONEUM: No free fluid. No free air. No fluid collection. LYMPH NODES: No significant adenopathy. AORTA / ARTERIES: No acute abnormality. Mild generalized atherosclerosis. IVC / VEINS: No significant abnormality. URINARY BLADDER: No significant abnormality. REPRODUCTIVE ORGANS: Prior hysterectomy. No significant adnexal abnormality. ADDITIONAL FINDINGS: A peritoneal dialysis catheter terminates to the left of midline posteriorly and inferiorly along the pelvis. SKELETAL SYSTEM: No acute abnormality. There is severe lumbar spondylosis with mild lumbar levoscoliosis. IMPRESSION: 1. No acute abnormality. 2. Additional findings as above. Signer Name: Radames Toro MD Signed: 10/21/2020 3:03 PM Workstation Name: [id number] - Medical Decision Making Differential diagnosis, including but not limited to: Bacteremia, viremia, pneumonia, urinary tract infection, postcholecystectomy syndrome, COVID-19, infected vascular access catheter, intra-abdominal infection Assessment and plan: 65-year-old female, meeting systemic inflammatory response syndrome criteria, manifested by fever, heart rate greater than 90. Patient also found to have 6% bandemia on WBC differential. CT scan abdomen pelvis, right upper quadrant ultrasound negative for acute findings, specifically, not suggestive of postcholecystectomy syndrome/retained stone. Patient not hypoxic, chest x-ray clear, COVID-19 is unlikely. However, we will maintain patient on isolation precautions, and sent laboratory studies to risk stratify patient for cytokine storm. Based off of the history, physical, and available data, do not have high suspicion or concern for pulmonary embolism at this time. Etiology for Sirs/sepsis is likely infected Vas-Cath. Peripheral blood cultures ordered, and blood cultures have been ordered to be drawn through Vas-Cath. Nursing team has been instructed to contact hemodialysis nurse to obtain cultures from Vas-Cath. Contacted nephrology on-call, Dr. De La Rosa, and vascular surgery on-call, Dr. Chaudhry. Discussed history, physical, pertinent laboratory studies and imaging findings. They agree to follow in consultation. Discussed recommendation for admission and antibiotic therapy with patient, who verbalized understanding, and who is amenable to this plan of care. Patient will be medicated with vancomycin and cefepime. Patient describes nonspecific hives when exposed to amoxicillin, without evidence or articulation of anaphylactic symptoms. Patient has not been exposed to amoxicillin for decades. As a fourth generation cephalosporin, cefepime quite structurally dissimilar to penicillin/amoxicillin, and is very statistically unlikely to cause anaphylactic/anaphylactoid reaction. Hospital physician, Dr. Hellen Chester to admit Patient not demonstrating evidence of lactic acidosis, hemodynamic instability, or septic shock, and also, given history of renal failure/end-stage renal disease, not having had hemodialysis today, does not meet criteria for bolus of 30 cc/kg IV fluids. We will give gentle hydration at this time. Critical Care Time: Yes Critical care time in (mins) excluding proc time.: 35 Critical care attestation.: If time is entered above; I have spent that time in minutes in the direct care of this critically ill patient, excluding procedure time. ED Disposition Clinical Impression: SIRS (systemic inflammatory response syndrome), ESRD (end stage renal disease), Back pain, Right sided abdominal pain, Vascular catheter infection Disposition: 09 OP ADMIT IP TO THIS HOSP Is pt being admited?: Yes Does the pt Need Aspirin: No Condition: Serious Referrals: PRIMARY CARE, [Primary Care Provider] - 3-5 Days
--- NOTE | 2020-10-21 12:54 | XRay Report ---
CHEST 1 VIEW 10/21/2020 12:37 PM INDICATION / CLINICAL INFORMATION: sepsis. COMPARISON: None available. FINDINGS: SUPPORT DEVICES: Left internal jugular dialysis catheter has tip in right atrium HEART / MEDIASTINUM: No significant abnormality. LUNGS / PLEURA: No significant pulmonary or pleural abnormality. No pneumothorax. ADDITIONAL FINDINGS: No significant additional findings. IMPRESSION: 1. No acute findings. Signer Name: Alfred Hansen MD Signed: 10/21/2020 12:50 PM Workstation Name: [id number]
[2020-10-21 13:30] LABS: Hematocrit 35.5 % (30.3-42.9); Hemoglobin 11.1 gm/dl (10.1-14.3); Mean Corpuscular HGB Conc 31 % (30-34); Mean Corpuscular Volume 82 fl (79-97); Red Blood Count 4.33 M/mm3 (3.65-5.03); Red Cell Distribution Width 17.6 % (13.2-15.2)
[2020-10-21 13:32] LABS: Platelet Count 57 K/mm3 (140-440)
[2020-10-21 13:34] LABS: Partial Thromboplastin Time 33.2 Sec. (24.2-36.6)
[2020-10-21] MEDS ORDERED: fentaNYL 100 MCG/2 ML INJ IV ONE (13:58)
[2020-10-21] MEDS ORDERED: VANCOMYCIN 750 MG in SODIUM CHLORIDE 0.9% 500 ML 500 ML IV ONE (13:58)
[2020-10-21 13:59] LABS: Albumin 2.5 g/dL (3.9-5); C-Reactive Protein 20.6 mg/dL (0.00-1.30); Calcium 8.2 mg/dL (8.4-10.2)
[2020-10-21 14:12] LABS: Chol/HDL Ratio 3.6 %
[2020-10-21] MEDS: ACETAMINOPHEN 500 MG TAB PO ONE ×2 (14:14→14:24)
[2020-10-21 14:21] LABS: Band Neutrophils # (Manual) 0.5 K/mm3; Basophils % (Manual) 0 % (0.0-1.8); Eosinophils % (Manual) 0 % (0.0-4.3); Total Cells Counted 100
[2020-10-21 14:22] LABS: Tear Drop Cells Few
[2020-10-21 14:23] LABS: Schistocytes 1+
[2020-10-21 14:24] LABS: Hypochromasia Few; Platelet Estimate Consistent w Auto
[2020-10-21] MEDS ORDERED: VANCOMYCIN/NS 1 GM/250 ML 1 GM/250 ML BAG IV ONE (15:00)
[2020-10-21] MEDS ORDERED: CEFEPIME/NS 1 GM/100 ML 1 GM/100 ML BAG IV SCH (15:00)
--- NOTE | 2020-10-21 15:18 | Ultrasound Report ---
ULTRASOUND ABDOMEN, LIMITED (RIGHT UPPER QUADRANT) INDICATION: ruq pain. COMPARISON: None available. FINDINGS: Pancreas: Visualized portion shows no significant abnormality. Liver: No significant abnormality. Gallbladder: Surgically absent. Sonographic Montes De Oca's sign: Not performed. Bile ducts: No significant abnormality. Common Bile Duct measures 5.1 mm. Free fluid: None. Additional Findings: The right kidney is atrophic. IMPRESSION: 1. No acute sonographic abnormality of the right upper quadrant. Signer Name: Radames Toro MD Signed: 10/21/2020 3:13 PM Workstation Name: [id number]
--- NOTE | 2020-10-21 16:08 | Cat Scan Report ---
CT ABDOMEN AND PELVIS WITHOUT CONTRAST INDICATION / CLINICAL INFORMATION: Back pain and right upper quadrant pain for 2 days. TECHNIQUE: Axial CT images were obtained through the abdomen and pelvis without IV contrast. All CT scans at [facility] location are performed using CT dose reduction for ALARA by means of automated exposure control. COMPARISON: Limited abdominal ultrasound performed earlier today. FINDINGS: LOWER CHEST: A partially visualized central venous catheter terminates within the right atrium. No si gnificant abnormality. LIVER: No significant abnormality. GALLBLADDER: Surgically absent. BILE DUCTS: No significant abnormality. PANCREAS: No significant abnormality. SPLEEN: No significant abnormality. ADRENALS: There is bilateral adrenal enlargement without visualization of a suspicious nodule/mass. RIGHT KIDNEY / URETER: Moderate atrophy of the right kidney. No acute abnormality. LEFT KIDNEY / URETER: Moderate atrophy of the left kidney. No acute abnormality. STOMACH / SMALL BOWEL: No significant abnormality. COLON: Generalized colonic diverticulosis without evidence of diverticulitis. No other significant ab normality. APPENDIX: No significant abnormality. PERITONEUM: No free fluid. No free air. No fluid collection. LYMPH NODES: No significant adenopathy. AORTA / ARTERIES: No acute abnormality. Mild generalized atherosclerosis. IVC / VEINS: No significant abnormality. URINARY BLADDER: No significant abnormality. REPRODUCTIVE ORGANS: Prior hysterectomy. No significant adnexal abnormality. ADDITIONAL FINDINGS: A peritoneal dialysis catheter terminates to the left of midline posteriorly and inferiorly along the pelvis. SKELETAL SYSTEM: No acute abnormality. There is severe lumbar spondylosis with mild lumbar levoscolio sis. IMPRESSION: 1. No acute abnormality. 2. Additional findings as above. Signer Name: Radames Toro MD Signed: 10/21/2020 4:03 PM Workstation Name: [id number]
[2020-10-21] MEDS ORDERED: SODIUM CHLORIDE 0.9% 250ML 250 ML IV ONE (16:20)
[2020-10-21] MEDS ORDERED: CEFEPIME/NS 1 GM/100 ML 1 GM/100 ML BAG IV ONE (17:00)
--- NOTE | 2020-10-21 17:20 | Operative Report ---
Operative Report Operative Report: Exam: Removal of left chest wall tunneled hemodialysis catheter Clinical indication: Patient with purulent drainage from the catheter track and bacteremia and sepsis Date: 10/21/2020 Procedure: Following an explanation of the risks, benefits and alternatives; informed consent was obtained. The procedure was performed at bedside in the ER. Initial evaluation of the patient's left indwelling tunneled hemodialysis catheter demonstrated purulence expressed from the tract. No erythema or pain along the tract. The sutures were cut and the indwelling catheter removed intact. Hemostasis was then achieved using manual compression. A sterile dressing was applied. The patient tolerated the procedure well. There were no immediate postprocedure complications. Impression: Removal of left chest wall tunneled hemodialysis catheter
[2020-10-21 17:56] VITALS: BP 174/84
== END 2020-10-21 18:50 | disposition left against medical advice (07) ==
LOC: ED 11:34 → 3A 16:40
PROVIDERS: ADMIT Internal Medicine; ATTEND Internal Medicine
DX: T82.7XXA Infection and inflammatory reaction due to other cardiac and vascular devices, implants and grafts, initial encounter (principal); R65.10 Systemic inflammatory response syndrome (SIRS) of non-infectious origin without acute organ dysfunction; I12.0 Hypertensive chronic kidney disease with stage 5 chronic kidney disease or end stage renal disease; N18.6 End stage renal disease; M54.9 Dorsalgia, unspecified; R10.9 Unspecified abdominal pain; Z86.718 Personal history of other venous thrombosis and embolism; Z99.2 Dependence on renal dialysis
CPT/HCPCS: 36415; 36589; 71045; 74176; 76705; 80053; 80061; 82140; 82550; 82728; 83615; 83690; 83735; 84145; 84484; 85025; 85379; 85730; 86140; 87040; 93005; 96365; 96366; 96368; 96375; 99291; G0378; J0692; J3010; J3370; 85007

== ENCOUNTER 2020-10-23 13:02 | Emergency (ER) | payer MEDICARE, OTHER ==
--- NOTE | 2020-10-23 14:14 | Event Note ---
ED Screening Note Date of service: 10/23/20 Time: 14:13 ED Screening Note: Complains of right-sided back pain x3 days and decreased appetite and difficulty sleeping States last dialysis was 10/19/ initial assessment/diagnostic orders/clinical plan/treatment(s) is/are subject to change based on patients health status, clinical progression and re- assessment by fellow clinical providers in the ED. Further treatment and workup at subsequent clinical providers discretion. Patient/guardian urged not to elope from the ED as their condition may be serious if not clinically assessed and managed. Initial orders include: Labs
[2020-10-23 16:04] LABS: Albumin 2.9 g/dL (3.9-5); Calcium 8.8 mg/dL (8.4-10.2)
[2020-10-23 16:11] LABS: Hematocrit 35.2 % (30.3-42.9); Hemoglobin 11.4 gm/dl (10.1-14.3); Mean Corpuscular HGB Conc 32 % (30-34); Mean Corpuscular Volume 80 fl (79-97); Red Blood Count 4.41 M/mm3 (3.65-5.03); Red Cell Distribution Width 17.8 % (13.2-15.2)
[2020-10-23 16:15] LABS: Platelet Count 46 K/mm3 (140-440)
[2020-10-23 16:48] LABS: Basophils % (Manual) 0 % (0.0-1.8); Eosinophils % (Manual) 0 % (0.0-4.3); Hypochromasia Few; Schistocytes 1+; Total Cells Counted 100
[2020-10-23 16:49] LABS: Platelet Clumps Few; Poikilocytosis Few; Tear Drop Cells Few
--- NOTE | 2020-10-24 00:06 | Emergency Department Report ---
ED Back Pain/Injury HPI - General Chief Complaint: Back Pain/Injury Stated Complaint: BACK PAIN Time Seen by Provider: 10/23/20 23:32 Source: patient Limitations: No Limitations - History of Present Illness Initial Comments: 65-year-old female with history of end-stage renal disease, spinal stenosis, sciatica, presents to ED with right-sided back pain. Patient states she walks with a walker and had a fall 3 weeks ago. Patient states she did not immediately have pain at that time. She reports onset of right-sided back pain 3 days ago. Patient states it is similar to her usual chronic back pain, but it is worse. Patient states she took Tylenol at home without relief. Patient presented to ED 3 days ago with fever and also reported this same back pain. She was found to have an infected dialysis catheter. The dialysis catheter was removed. Patient left AMA because she did not want to stay and be admitted. Patient is afebrile today, but states she is still having the same back pain. Patient had an abdominal ultrasound, chest x-ray, and CT abdomen/pelvis on which showed no acute findings. Patient states she only makes very minimal urine. MD Complaint: back pain -: days(s) (3) Similar Symptoms Previously: Yes Radiation: none Severity: moderate - Related Data Previous Rx's Medication Instructions Recorded Last Taken Type methOCARBAMOL [Robaxin TAB] 500 mg PO Q8HR PRN #15 tablet 10/24/20 Unknown Rx traMADoL [Ultram] 50 mg PO Q6HR PRN #7 tablet 10/24/20 Unknown Rx Allergies Allergy/AdvReac Type Severity Reaction Status Date / Time amoxicillin Allergy Hives Verified 09/16/19 10:58 Bpfiylb-Cje-Gnl Reductase Allergy Unknown Verified 09/16/19 10:58 Inhibitor ED Review of Systems ROS: Stated complaint: BACK PAIN Other details as noted in HPI ED Past Medical Hx - Past Medical History Previous Medical History?: Yes Hx Hypertension: Yes Hx CVA: No Hx Heart Attack/AMI: No Hx Congestive Heart Failure: No Hx Diabetes: No Hx Deep Vein Thrombosis: Yes (Lungs and right leg) Hx Pulmonary Embolism: Yes Hx GERD: No Hx Renal Disease: Yes (dialysis M, W, F) Hx Sickle Cell Disease: No Hx Arthritis: No Hx Headaches / Migraines: No Hx Seizures: No Hx Asthma: No Hx COPD: No Hx Tuberculosis: No Hx Dementia: No Additional medical history: spinal stenosis - Surgical History Past Surgical History?: Yes Hx Cholecystectomy: Yes Additional Surgical History: tonsilectomy. hysterectomy - Social History Smoking Status: Never Smoker Substance Use Type: None - Medications Home Medications: Home Medications Medication Instructions Recorded Confirmed Last Taken Type methOCARBAMOL [Robaxin TAB] 500 mg PO Q8HR PRN #15 tablet 10/24/20 Unknown Rx traMADoL [Ultram] 50 mg PO Q6HR PRN #7 tablet 10/24/20 Unknown Rx ED Physical Exam - General Limitations: No Limitations ED Course Vital Signs 10/23/20 10/23/20 10/23/20 13:10 23:26 23:30 Temperature 97.6 F Pulse Rate 67 Respiratory 18 Rate Blood Pressure 122/71 122/71 Blood Pressure 117/87 [Right] O2 Sat by Pulse 100 100 Oximetry 10/24/20 10/24/20 10/24/20 00:00 00:30 00:35 Temperature Pulse Rate 70 Respiratory Rate Blood Pressure 119/73 112/72 Blood Pressure [Right] O2 Sat by Pulse 100 100 Oximetry ED Medical Decision Making - Lab Data Result diagrams: 10/23/20 15:28 10/23/20 15:28 - Medical Decision Making 65-year-old female with right lower back pain. Patient reports pain is similar to her previous back pain. She reports a history of sciatica, spinal stenosis. She denies any urinary incontinence or weakness. Patient was seen 3 days ago for same. Had unremarkable chest x-ray, abdominal ultrasound, and CT abdomen pelvis. Patient reports he only makes minimal urine, as she is a dialysis patient. Likely not pyelonephritis. Patient reports no relief at home with Tylenol. Patient given IM morphine and Toradol here in ED. Prescriptions given. Will discharge at this time. Outpatient follow-up advised. - Differential Diagnosis Acute on chronic back pain, kidney stone, pneumonia Critical care attestation.: If time is entered above; I have spent that time in minutes in the direct care of this critically ill patient, excluding procedure time. ED Disposition Clinical Impression: Acute exacerbation of chronic low back pain Disposition: - TO HOME OR SELFCARE Is pt being admited?: No Condition: Stable Instructions: Acute Back Pain, Adult Prescriptions: methOCARBAMOL [Robaxin TAB] 500 mg PO Q8HR PRN #15 tablet PRN Reason: Muscle Spasm traMADoL [Ultram] 50 mg PO Q6HR PRN #7 tablet PRN Reason: Pain Referrals: PRIMARY CARE, [Primary Care Provider] - 3-5 Days PHILLIP HAMILTON MD [Staff Physician] - DRE DOWLING MD [Staff Physician] - ABIGAIL BUCIO MD [Staff Physician] - as needed Time of Disposition: 00:46
[2020-10-24] MEDS ORDERED: MORPHINE 2 MG/1 ML INJ IM ONE (00:08)
[2020-10-24] MEDS ORDERED: KETOROLAC 30 MG/1 ML INJ IM ONE (00:09)
[2020-10-24 00:35] VITALS: BP 112/72
== END 2020-10-24 01:15 | disposition home or self-care (01) ==
LOC: ED 13:02
DX: M54.5 Low back pain (principal); G89.29 Other chronic pain; I12.0 Hypertensive chronic kidney disease with stage 5 chronic kidney disease or end stage renal disease; N18.6 End stage renal disease; Z99.2 Dependence on renal dialysis; Z86.718 Personal history of other venous thrombosis and embolism; Z79.01 Long term (current) use of anticoagulants; Z86.711 Personal history of pulmonary embolism; Z90.710 Acquired absence of both cervix and uterus; Z88.1 Allergy status to other antibiotic agents; Z98.890 Other specified postprocedural states; Z90.89 Acquired absence of other organs
CPT/HCPCS: 36415; 80053; 85007; 85025; 96372; 99283; J1885; J2270

== ENCOUNTER 2021-02-28 10:02 | Emergency (ER) | payer MEDICARE ==
--- NOTE | 2021-02-28 10:43 | Consultation ---
History of Present Illness - Reason for Consult Consult date: 02/28/21 Malfunctioning dialysis catheter - History of Present Illness Patient with a history of end-stage renal disease on hemodialysis through a left chest wall tunneled hemodialysis catheter. Patient's normal schedule is Thursday. Her last normal dialysis was on Thursday. When she presented to dialysis this morning, her catheter would not function. She was subsequently sent to the ER. Past History Past Medical History: dialysis, ESRD Medications and Allergies Allergies Allergy/AdvReac Type Severity Reaction Status Date / Time amoxicillin Allergy Hives Verified 09/16/19 10:58 Yptkkuf-Ubm-Lui Reductase Allergy Unknown Verified 09/16/19 10:58 Inhibitor Home Medications Medication Instructions Recorded Confirmed Last Taken Type methOCARBAMOL [Robaxin TAB] 500 mg PO Q8HR PRN #15 tablet 10/24/20 12/01/20 Unknown Rx Metoprolol [Lopressor TAB] 25 mg PO Q12H #60 tablet 11/21/20 12/01/20 Unknown Rx Docusate Sodium [Colace] 100 mg PO BID PRN #30 capsule 12/10/20 Unknown Rx Ferrous Sulfate [Feosol 325 MG tab] 325 mg PO QDAY #30 tablet 12/10/20 Unknown Rx Multivitamin Tab [Multiple Vitamin 1 each PO QDAY #30 tablet 12/10/20 Unknown Rx TAB (Theragran)] oxyCODONE ER [oxyCONTIN ER] 10 mg PO Q12HR #14 tablet 12/10/20 Unknown Rx Review of Systems All systems: negative Exam - Constitutional General appearance: Present: no acute distress - EENT Eyes: Present: EOM intact ENT: hearing intact - Neck Neck: Present: supple, normal ROM - Respiratory Respiratory effort: normal - Abdominal General gastrointestinal: Present: deferred - Rectal Rectal Exam: deferred - Psychiatric Psychiatric: cooperative Assessment and Plan Patient will be scheduled for tunneled hemodialysis catheter exchange. After this, with nephrology's okay, the patient may be discharged to follow-up in her outpatient dialysis center.
[2021-02-28 11:36] LABS: Hematocrit 23.2 % (30.3-42.9); Hemoglobin 7.5 gm/dl (10.1-14.3); Mean Corpuscular HGB Conc 33 % (30-34); Mean Corpuscular Volume 85 fl (79-97); Platelet Count 157 K/mm3 (140-440); Red Blood Count 2.72 M/mm3 (3.65-5.03); Red Cell Distribution Width 18.7 % (13.2-15.2)
[2021-02-28 11:53] LABS: INR 0.99 (0.87-1.13)
[2021-02-28 11:54] LABS: Partial Thromboplastin Time 36.9 Sec. (24.2-36.6)
[2021-02-28 11:57] LABS: Calcium 8.6 mg/dL (8.4-10.2)
--- NOTE | 2021-02-28 12:08 | Emergency Department Report ---
ED General Adult HPI - General Chief complaint: Medical Clearance Stated complaint: CATHETER OUT Time Seen by Provider: 02/28/21 10:22 Source: patient, EMS Mode of arrival: Stretcher Limitations: No Limitations - History of Present Illness Initial comments: Patient is a 66-year-old F [place] female with a past medical history of end- stage renal disease who is presenting with dysfunctional dialysis catheter. Patient states her last normal dialysis was 2 days ago. States she went today and the dialysis catheter would not work. She did not receive her dialysis. She is not complaining of any chest pain shortness of breath fevers chills cough cold or congestion. - Related Data Previous Rx's Medication Instructions Recorded Last Taken Type methOCARBAMOL [Robaxin TAB] 500 mg PO Q8HR PRN #15 tablet 10/24/20 Unknown Rx Metoprolol [Lopressor TAB] 25 mg PO Q12H #60 tablet 11/21/20 Unknown Rx Docusate Sodium [Colace] 100 mg PO BID PRN #30 capsule 12/10/20 Unknown Rx Ferrous Sulfate [Feosol 325 MG tab] 325 mg PO QDAY #30 tablet 12/10/20 Unknown Rx Multivitamin Tab [Multiple Vitamin 1 each PO QDAY #30 tablet 12/10/20 Unknown Rx TAB (Theragran)] oxyCODONE ER [oxyCONTIN ER] 10 mg PO Q12HR #14 tablet 12/10/20 Unknown Rx Allergies Allergy/AdvReac Type Severity Reaction Status Date / Time amoxicillin Allergy Hives Verified 09/16/19 10:58 Qgwxzxf-Day-Deq Reductase Allergy Unknown Verified 09/16/19 10:58 Inhibitor ED Review of Systems ROS: Stated complaint: CATHETER OUT Other details as noted in HPI Comment: All other systems reviewed and negative ED Past Medical Hx - Past Medical History Hx Hypertension: Yes Hx CVA: No Hx Heart Attack/AMI: No Hx Congestive Heart Failure: No Hx Diabetes: No Hx Deep Vein Thrombosis: Yes (Lungs and right leg) Hx Pulmonary Embolism: Yes Hx GERD: No Hx Liver Disease: No Hx Renal Disease: Yes (dialysis M, W, F) Hx Sickle Cell Disease: No Hx Arthritis: No Hx Headaches / Migraines: No Hx Seizures: No Hx Asthma: No Hx COPD: No Hx Tuberculosis: No Hx Dementia: No Hx HIV: No Additional medical history: spinal stenosis - Surgical History Hx Pacemaker: No Hx Internal Defibrillator: No Hx Cholecystectomy: Yes Additional Surgical History: tonsilectomy. hysterectomy - Social History Smoking Status: Never Smoker - Medications Home Medications: Home Medications Medication Instructions Recorded Confirmed Last Taken Type methOCARBAMOL [Robaxin TAB] 500 mg PO Q8HR PRN #15 tablet 10/24/20 12/01/20 Unknown Rx Metoprolol [Lopressor TAB] 25 mg PO Q12H #60 tablet 11/21/20 12/01/20 Unknown Rx Docusate Sodium [Colace] 100 mg PO BID PRN #30 capsule 12/10/20 Unknown Rx Ferrous Sulfate [Feosol 325 MG tab] 325 mg PO QDAY #30 tablet 12/10/20 Unknown Rx Multivitamin Tab [Multiple Vitamin 1 each PO QDAY #30 tablet 12/10/20 Unknown Rx TAB (Theragran)] oxyCODONE ER [oxyCONTIN ER] 10 mg PO Q12HR #14 tablet 12/10/20 Unknown Rx ED Physical Exam - General Limitations: No Limitations General appearance: alert, in no apparent distress - Head Head exam: Present: atraumatic, normocephalic - Eye Eye exam: Present: normal appearance, PERRL, EOMI - ENT ENT exam: Present: mucous membranes moist - Neck Neck exam: Present: normal inspection - Respiratory Respiratory exam: Present: normal lung sounds bilaterally. Absent: respiratory distress, wheezes, rales, rhonchi - Cardiovascular Cardiovascular Exam: Present: regular rate, normal rhythm. Absent: systolic murmur, diastolic murmur, rubs, gallop - GI/Abdominal GI/Abdominal exam: Present: soft, normal bowel sounds. Absent: distended, tenderness, guarding, rebound - Extremities Exam Extremities exam: Present: normal inspection - Back Exam Back exam: Present: normal inspection - Neurological Exam Neurological exam: Present: alert, oriented X3 - Psychiatric Psychiatric exam: Present: normal affect, normal mood - Skin Skin exam: Present: warm, dry, intact, normal color. Absent: rash ED Course Vital Signs 02/28/21 02/28/21 02/28/21 10:36 10:41 11:16 Temperature 98.9 F Pulse Rate 73 68 Respiratory 13 15 16 Rate Blood Pressure 139/79 Blood Pressure 133/87 [Right] O2 Sat by Pulse 100 100 Oximetry ED Medical Decision Making - Lab Data Result diagrams: 02/28/21 10:52 02/28/21 10:52 Lab Results 02/28/21 02/28/21 02/28/21 Range/Units 10:52 10:52 10:52 WBC 4.0 L (4.5-11.0) K/mm3 RBC 2.72 L (3.65-5.03) M/mm3 Hgb 7.5 L (10.1-14.3) gm/dl Hct 23.2 L (30.3-42.9) % MCV 85 (79-97) fl MCH 28 (28-32) pg MCHC 33 (30-34) % RDW 18.7 H (13.2-15.2) % Plt Count 157 (140-440) K/mm3 Otero % (Auto) Geothermal Electrical Engineer Baso % (Auto) Geothermal Electrical Engineer PT 13.0 (12.2-14.9) Sec. INR 0.99 (0.87-1.13) APTT 36.9 H (24.2-36.6) Sec. Sodium 138 (137-145) mmol/L Potassium 3.4 L (3.6-5.0) mmol/L Chloride 102.5 (98-107) mmol/L Carbon Dioxide 22 (22-30) mmol/L Anion Gap 17 mmol/L BUN 43 H (7-17) mg/dL Creatinine 5.7 H (0.6-1.2) mg/dL Estimated GFR 9 ml/min BUN/Creatinine Ratio 8 % Glucose 78 (65-100) mg/dL Calcium 8.6 (8.4-10.2) mg/dL - Medical Decision Making Patient is presenting with dysfunctional dialysis catheter. Dr. Chaudhry with vascular surgery was consulted and saw the patient in the emergency department. Patient is being scheduled for a an exchange of her catheter and will likely be discharged home. Critical care attestation.: If time is entered above; I have spent that time in minutes in the direct care of this critically ill patient, excluding procedure time. ED Disposition Clinical Impression: Vascular catheter dysfunction Qualifiers: Encounter type: initial encounter Qualified Code(s): T82.41XA - Breakdown (mechanical) of vascular dialysis catheter, initial encounter Disposition: TO HOME OR SELFCARE Is pt being admited?: No Does the pt Need Aspirin: No Condition: Stable Instructions: Dialysis Vascular Access Malfunction Referrals: PRIMARY CARE, [Primary Care Provider] - 3-5 Days Time of Disposition: 14:06
[2021-02-28] MEDS ORDERED: MIDAZOLAM 2 MG/2 ML INJ ONE (14:14)
[2021-02-28] MEDS ORDERED: fentaNYL 100 MCG/2 ML INJ ONE (14:14)
[2021-02-28] MEDS ORDERED: SODIUM CHLORIDE 0.9% 250ML 250 ML ONE (14:15)
[2021-02-28] MEDS ORDERED: LIDOCAINE (2%) 20 MG/1 ML VIAL 20 ML MDV INFILTRATI ONE (14:15)
[2021-02-28] MEDS ORDERED: HEPARIN 10,000 UNITS/10 ML VIAL ONE (14:15)
[2021-02-28] MEDS ORDERED: HEPARIN/NS 5000 UNIT/500ML 500 ML IR ONE (14:20)
--- NOTE | 2021-02-28 15:38 | Operative Report ---
Operative Report Operative Report: Exam: Venogram, fluoroscopic guided exchange of tunneled hemodialysis catheter Clinical indication: Malfunctioning hemodialysis catheter Date: 02/28/2021 Procedure: Following an explanation of the risks, benefits and alternatives; written informed consent was obtained. The patient was brought to the angio graphic suite and placed in supine position on the examination table. Initial fluoroscopic images demonstrated a left chest wall tunneled hemodialysis catheter with the tip in the proximal right atrium. The patient's left chest wall and indwelling catheter were prepped and draped in the usual sterile fashion. 1% lidocaine was used for anesthesia. The catheter cuff was dissected free using a combination of sharp and blunt dissection. The catheter was then withdrawn proximally. Aspiration was then performed to remove the heparin with some degree of difficulty in the venous port. Contrast was then injected through the arterial port. No significant central stenosis or fibrin sheath was identified. A 0.035 guidewire was advanced through both the arterial and venous lumens of the catheter and under fluoroscopy advanced to the IVC for anchoring. The indwelling catheter was then removed intact. A new Bard 23 cm glidepath tunneled hemodialysis catheter was then placed over both guidewires and advanced to position the tip in the proximal right atrium. The guidewires were removed. Both ports flushed and aspirated easily were then locked with appropriate volumes of heparin. The c atheter exit site was approximated using 2-0 Vicryl suture and a sterile dressing applied. The patient tolerated the procedure well. There were no immediate postprocedure complications. Conscious sedation was performed under the guidance of radiologic nursing. Continuous cardiopulmonary monitoring was utilized. Impression: 1) Central venogram demonstrating no significant fibrin sheath or central venous stenosis. 2) Fluoroscopic guided exchange of left chest wall tunneled hemodialysis catheter with placement of a 23 cm left chest wall PermCath.
[2021-02-28 15:48] LABS: Anisocytosis RARE; Total Cells Counted 100
[2021-02-28 18:15] VITALS: BP 151/90
== END 2021-02-28 22:44 | disposition home or self-care (01) ==
LOC: ED 10:02
DX: T82.9XXA Unspecified complication of cardiac and vascular prosthetic device, implant and graft, initial encounter (principal); I10 Essential (primary) hypertension; Z90.710 Acquired absence of both cervix and uterus; Z90.89 Acquired absence of other organs; Z98.890 Other specified postprocedural states; Z79.899 Other long term (current) drug therapy; Z88.8 Allergy status to other drugs, medicaments and biological substances; Y92.89 Other specified places as the place of occurrence of the external cause
CPT/HCPCS: 36415; 36581; 77001; 80048; 85007; 85025; 85610; 85730; 99283; C1750; C1769; J1644; J2250; J3010; J7050; Q9967